=== PATIENT | female | born 2000 | race Two or more races ===

== ENCOUNTER 2025-04-12 08:58 | Day surgery (SDC) | payer OTHER ==
[~2025-04-12] VITALS: Ht 160 cm; Wt 96.2 kg
[~2025-04-12 08:58] MED LIST: BUPR-766 PO; DROS4TAB PO; FLUTISP; OXYMETAZOLINE 0.05% NASAL SPRAY As Ordered ONE; VITA100093 PO
[2025-04-12] MEDS ORDERED: LR 1,000 ML IV SCH ×2 (09:50→11:35)
[2025-04-12] MEDS ORDERED: MIDAZOLAM INJ 2 MG/2 ML VIAL As Ordered ONE (09:53)
[2025-04-12] MEDS ORDERED: ONDANSETRON 4MG 2ML VIAL As Ordered ONE (09:56)
[2025-04-12] MEDS ORDERED: dexAMETHasone 4 MG/ML 1 ML VIAL As Ordered ONE (09:56)
[2025-04-12] MEDS ORDERED: ROCURONIUM BROMIDE 50MG/5ML VIAL As Ordered ONE (09:56)
[2025-04-12] MEDS ORDERED: LIDOCAINE 2% 100 MG/5 ML SDV (FOR ANES.) As Ordered ONE (09:57)
[2025-04-12] MEDS ORDERED: ACETAMINOPHEN 1000MG/100ML IV BAG As Ordered ONE (09:59)
[2025-04-12] MEDS ORDERED: SUGAMMADEX SODIUM 500 MG/5 ML VIAL As Ordered ONE (10:50)
[2025-04-12] MEDS: LIDOCAINE W/EPINEPHrine 1% 20 ML VIAL As Ordered ONE (10:52)
[2025-04-12] MEDS ORDERED: HYDROMORPHONE HCL 0.5 MG/0.5 ML SYRINGE IV PRN (11:35)
[2025-04-12 12:20] VITALS: BP 149/83; TEMP 97.2; O2SAT 99
== END 2025-04-12 12:38 | disposition home or self-care (01) ==
LOC: M SDC 08:58
PROVIDERS: ATTEND Otolaryngology
DX: J34.2 Deviated nasal septum (principal); F41.9 Anxiety disorder, unspecified; F32.A Depression, unspecified; Z79.899 Other long term (current) drug therapy
CPT/HCPCS: 30520; 81025; J0131; J1100; J2250; J2405; J3010